=== PATIENT | female | born 1960 | race Caucasian/White ===

== ENCOUNTER 2017-02-07 06:45 | Emergency (ER) | payer OTHER ==
[~2017-02-07] VITALS: Ht 160 cm; Wt 70.8 kg
[2017-02-07 07:33] LABS: EOSINOPHIL (%) 0.2 % (0-5); HEMATOCRIT 42.8 % (36.0-46.0); IMMATURE GRANULOCYTE (%) 0.5 % (0.0-0.7); IMMATURE GRANULOCYTE COUNT 0.1 K/uL; INSTRUMENT ABS NEUTROPHIL CT 10.1 K/uL; LYMPHOCYTE COUNT 1.5 K/uL (1.0-2.8); MCH 34.1 PG (29.0-34.0); MCHC 34.8 G/DL (30.0-36.0); MCV 97.9 FL (83-99); MEAN PLAT.VOLUME 9.1 uM^3 (9.5-12.4); MONOCYTE (%) 6.1 % (3-12); MONOCYTE COUNT 0.8 K/uL (0-0.8); NEUTROPHIL (%) 80.7 % (45-76); NEUTROPHIL COUNT 10.1 K/uL (1.8-6.4); PLATELET COUNT 312 K/uL (156-360); RBC DIS.WIDTH-CV 12.3 % (11.8-14.6); RBC DIS.WIDTH-SD 44.4 % (39-53); RED BLOOD COUNT 4.37 M/uL (3.80-5.20); WHITE BLOOD COUNT 12.6 K/uL (4.1-10.2)
[2017-02-07 07:49] LABS: CHLORIDE 107 mEq/L (99-109); POTASSIUM 3.6 mEq/L (3.7-5.4); SODIUM 146 mEq/L (136-147)
[2017-02-07 07:51] LABS: GLUCOSE 127 mg/dL (70-99)
[2017-02-07 07:52] LABS: ANION GAP 13 MEQ/L (2-14)
[2017-02-07 07:53] LABS: TOTAL BILIRUBIN 0.5 mg/dL (0.0-1.0)
[2017-02-07 07:55] LABS: ALKALINE PHOSPHATASE 98 IU/L (3-129); GFR ESTIMATE (CALCULATED) > 59 mL/min/
[2017-02-07 07:56] LABS: UREA NITROGEN (BUN) 17 mg/dL (9-23)
[2017-02-07 07:57] LABS: TROP-I INTERPRETATION NEGATIVE; TROPONIN-I < 0.01 ng/mL (0.0-0.30)
[2017-02-07 08:03] LABS: D-DIMER ELISA 1.79 mg/L FEU (< 0.57)
[2017-02-07 10:46] LABS: TROP-I INTERPRETATION NEGATIVE; TROPONIN-I < 0.01 ng/mL (0.0-0.30)
[2017-02-07] MEDS ORDERED: PROTONIX40 MG PO ×2 (11:22→22:20)
[2017-02-07 12:13] VITALS: BP 156/99
[2017-02-07] MEDS ORDERED: VALACYCLOVIR1000 MG PO (22:18)
[2017-02-07] MEDS ORDERED: OXYCODONE-APAP1 EACH PO (22:18)
[2017-02-07] MEDS ORDERED: ANTIVERT25 MG PO (22:18)
[2017-02-07] MEDS ORDERED: AMITRIPTYLINE H50 MG PO (22:19)
[2017-02-07] MEDS ORDERED: LOTENSIN10 MG PO (22:19)
[2017-02-07] MEDS ORDERED: ALPRAZOLAM0.5 MG PO (22:19)
[2017-02-07] MEDS ORDERED: IPRATROPIUM BRO15 ML BOTH NARES (22:19)
[2017-02-07] MEDS ORDERED: LEVOTHYROXINE112 MCG PO (22:20)
== END 2017-02-07 12:35 | disposition home or self-care (01) ==
LOC: EME 06:45
PROVIDERS: Emergency Medicine
DX: R07.89 Other chest pain (principal); R10.13 Epigastric pain; I10 Essential (primary) hypertension; E78.5 Hyperlipidemia, unspecified; Z88.6 Allergy status to analgesic agent
CPT/HCPCS: 71010; 71275; 80053; 84484; 85025; 85379; 93005; 99281; 99284; J2270; J2405; J7030

== ENCOUNTER 2017-02-07 19:48 | Observation (INO) | payer OTHER ==
[~2017-02-07] VITALS: Ht 160 cm; Wt 67.7 kg
[~2017-02-07 19:48] MED LIST: PROTONIX40 MG PO
[2017-02-07 20:28] LABS: HEMATOCRIT 44.2 % (36.0-46.0); MCH 34.1 PG (29.0-34.0); MCHC 34.4 G/DL (30.0-36.0); MCV 99.1 FL (83-99); MEAN PLAT.VOLUME 9.1 uM^3 (9.5-12.4); PLATELET COUNT 331 K/uL (156-360); RBC DIS.WIDTH-CV 12.6 % (11.8-14.6); RED BLOOD COUNT 4.46 M/uL (3.80-5.20); WHITE BLOOD COUNT 9.9 K/uL (4.1-10.2)
[2017-02-07 20:43] LABS: CHLORIDE 106 mEq/L (99-109); SODIUM 143 mEq/L (136-147)
[2017-02-07 20:45] LABS: GLUCOSE 117 mg/dL (70-99)
[2017-02-07 20:46] LABS: ANION GAP 12 MEQ/L (2-14)
[2017-02-07 20:48] LABS: GFR ESTIMATE (CALCULATED) > 59 mL/min/
[2017-02-07 20:49] LABS: TROP-I INTERPRETATION NEGATIVE; TROPONIN-I < 0.01 ng/mL (0.0-0.30); UREA NITROGEN (BUN) 17 mg/dL (9-23)
[2017-02-07] MEDS ORDERED: VALACYCLOVIR1000 MG PO (22:18)
[2017-02-07] MEDS ORDERED: ANTIVERT25 MG PO (22:18)
[2017-02-07] MEDS ORDERED: OXYCODONE-APAP1 EACH PO (22:18)
[2017-02-07] MEDS ORDERED: ALPRAZOLAM0.5 MG PO (22:19)
[2017-02-07] MEDS ORDERED: AMITRIPTYLINE H50 MG PO (22:19)
[2017-02-07] MEDS ORDERED: IPRATROPIUM BRO15 ML BOTH NARES (22:19)
[2017-02-07] MEDS ORDERED: LOTENSIN10 MG PO (22:19)
[2017-02-07] MEDS ORDERED: PROTONIX40 MG PO (22:20)
[2017-02-07] MEDS ORDERED: LEVOTHYROXINE112 MCG PO (22:20)
[2017-02-08 02:24] VITALS: BP 145/86
[2017-02-08 02:53] LABS: D-DIMER ELISA > 4.00 mg/L FEU (< 0.57)
[2017-02-08 03:04] LABS: TROP-I INTERPRETATION NEGATIVE; TROPONIN-I < 0.01 ng/mL (0.0-0.30)
[2017-02-08 03:54] VITALS: BP 132/68
[2017-02-08 08:52] VITALS: BP 141/69
[2017-02-08 09:47] LABS: TROP-I INTERPRETATION NEGATIVE; TROPONIN-I < 0.01 ng/mL (0.0-0.30)
[2017-02-08 11:38] VITALS: BP 157/72
[2017-02-08 18:50] VITALS: BP 176/96
[2017-02-09 00:08] VITALS: BP 137/72
[2017-02-09 03:57] VITALS: BP 142/72
[2017-02-09 06:30] LABS: HEMATOCRIT 37.3 % (36.0-46.0); MCH 34.2 PG (29.0-34.0); MCHC 34.6 G/DL (30.0-36.0); MCV 98.9 FL (83-99); MEAN PLAT.VOLUME 9.5 uM^3 (9.5-12.4); PLATELET COUNT 274 K/uL (156-360); RBC DIS.WIDTH-CV 11.9 % (11.8-14.6); RBC DIS.WIDTH-SD 43.7 % (39-53); RED BLOOD COUNT 3.77 M/uL (3.80-5.20)
[2017-02-09 06:36] LABS: WHITE BLOOD COUNT 5.9 K/uL (4.1-10.2)
[2017-02-09 06:41] LABS: ALKALINE PHOSPHATASE 75 IU/L (3-129); ANION GAP 11 MEQ/L (2-14); CHLORIDE 105 MEQ/L (99-109); GFR ESTIMATE (CALCULATED) > 59 mL/min/; GLUCOSE 115 mg/dL (70-99); POTASSIUM 4.2 MEQ/L (3.7-5.4); SAMPLE HEMOLYSIS CHECK 0; SAMPLE ICTERIC CHECK 0; SAMPLE LIPEMIA CHECK 0; SODIUM 140 MEQ/L (136-147); TOTAL BILIRUBIN 0.6 MG/DL (0.0-1.0); UREA NITROGEN (BUN) 11 mg/dL (9-23)
[2017-02-09 07:39] VITALS: BP 143/84
[2017-02-09 11:21] VITALS: BP 129/77
[2017-02-09 11:36] LABS: ADD MIUA? YES; BILIRUBIN NEGATIVE; BLOOD SMALL; COLOR STRAW ((YELLOW)); GLUCOSE (STRIP) NEGATIVE; KETONES 5; LEUKOCYTES NEGATIVE; NITRITE NEGATIVE; PROTEIN (STRIP) NEGATIVE; SPECIFIC GRAVITY 1.003 (1.000-1.030); UROBILINOGEN 0.2 MG/DL (0.2-1.0)
[2017-02-09 11:54] LABS: BACTERIA 1+ /HPF; EPITHELIAL CELLS RARE /HPF; MUCUS TRACE /LPF; RED BLOOD CELLS 0-5 /HPF (0-5); UCUL ADDED? NO; WHITE BLOOD CELLS 0-5 /HPF (0-5)
[2017-02-09] MEDS ORDERED: NITROSTAT0.4 MG SL (14:53)
[2017-02-09] MEDS ORDERED: PEPCID AC20 MG PO (14:53)
[2017-02-09] MEDS ORDERED: ASPIR-LOW81 MG PO (14:53)
[2017-02-09] MEDS ORDERED: LOPRESSOR25 MG PO (14:53)
[2017-02-09] MEDS ORDERED: DELTASONE20 M1 PO (14:53)
[2017-02-09] MEDS ORDERED: BENADRYL25 MG PO (14:53)
== END 2017-02-09 15:40 | disposition home or self-care (01) ==
LOC: EME 19:48 → EDOF 02-08 01:23 → 5WEST 02-08 01:23 → EDOF 02-08 01:23 → 5WEST 02-08 02:13
PROVIDERS: Hospitalist
PROC: 0DB68ZX Excision of Stomach, Via Natural or Artificial Opening Endoscopic, Diagnostic (ICD-10-PCS; principal; 2017-02-08)
DX: K29.70 Gastritis, unspecified, without bleeding (principal); L27.0 Generalized skin eruption due to drugs and medicaments taken internally; K44.9 Diaphragmatic hernia without obstruction or gangrene; T40.2X5A Adverse effect of other opioids, initial encounter; F10.21 Alcohol dependence, in remission; I42.6 Alcoholic cardiomyopathy; F10.24 Alcohol dependence with alcohol-induced mood disorder; E03.9 Hypothyroidism, unspecified; I10 Essential (primary) hypertension; E78.5 Hyperlipidemia, unspecified; F17.200 Nicotine dependence, unspecified, uncomplicated; K21.9 Gastro-esophageal reflux disease without esophagitis
CPT/HCPCS: 71010; 74177; 80048; 80053; 81003; 83690; 84484; 85027; 85379; 88305; 88342 TC; 93005; 93970; 99281; 99285; C9113; G0378; J1100; J1170; J1200; J1650; J2060; J2270; J2405; J2765; J2920; J7030; J7120; S0028

== ENCOUNTER 2017-02-14 15:21 | Emergency (ER) | payer OTHER ==
[~2017-02-14] VITALS: Ht 160 cm; Wt 60.5 kg
[~2017-02-14 15:21] MED LIST changes: +ALPRAZOLAM0.5 MG PO; +AMITRIPTYLINE H50 MG PO; +ANTIVERT25 MG PO; +ASPIR-LOW81 MG PO; +BENADRYL25 MG PO; +DELTASONE20 M1 PO; +IPRATROPIUM BRO15 ML BOTH NARES; +LEVOTHYROXINE112 MCG PO; +LOPRESSOR25 MG PO; +LOTENSIN10 MG PO; +NITROSTAT0.4 MG SL; +OXYCODONE-APAP1 EACH PO; +PEPCID AC20 MG PO; +VALACYCLOVIR1000 MG PO
[2017-02-14 16:33] LABS: HEMATOCRIT 40.4 % (36.0-46.0); MCH 34.3 PG (29.0-34.0); MCHC 34.9 G/DL (30.0-36.0); MCV 98.3 FL (83-99); PLATELET COUNT 328 K/uL (156-360); RBC DIS.WIDTH-CV 12.3 % (11.8-14.6); RBC DIS.WIDTH-SD 44.7 % (39-53); RED BLOOD COUNT 4.11 M/uL (3.80-5.20); WHITE BLOOD COUNT 10.8 K/uL (4.1-10.2)
[2017-02-14 16:45] LABS: CHLORIDE 108 mEq/L (99-109); SODIUM 140 mEq/L (136-147)
[2017-02-14 16:47] LABS: GLUCOSE 175 mg/dL (70-99)
[2017-02-14 16:48] LABS: ANION GAP 11 MEQ/L (2-14)
[2017-02-14 16:51] LABS: GFR ESTIMATE (CALCULATED) > 59 mL/min/
[2017-02-14 16:54] LABS: UREA NITROGEN (BUN) 24 mg/dL (9-23)
[2017-02-14 17:00] VITALS: BP 137/103
[2017-02-14 17:11] LABS: TROP-I INTERPRETATION NEGATIVE; TROPONIN-I 0.01 ng/mL (0.0-0.30)
[2017-02-14 18:38] LABS: TOTAL BILIRUBIN 0.3 mg/dL (0.0-1.0)
[2017-02-14 18:39] LABS: ALKALINE PHOSPHATASE 90 IU/L (3-129)
[2017-02-14 18:42] LABS: DIRECT BILIRUBIN 0.1 mg/dL (0.0-0.3)
[2017-02-14 18:43] LABS: LIPASE 73 U/L (1.0-51.0)
[2017-02-14 19:16] LABS: ADD MIUA? YES; BILIRUBIN NEGATIVE; BLOOD NEGATIVE; COLOR YELLOW ((YELLOW)); GLUCOSE (STRIP) NEGATIVE; KETONES NEGATIVE; LEUKOCYTES NEGATIVE; NITRITE POSITIVE; PROTEIN (STRIP) NEGATIVE; SPECIFIC GRAVITY 1.013 (1.000-1.030); UROBILINOGEN 0.2 MG/DL (0.2-1.0)
[2017-02-14 19:24] LABS: BACTERIA RARE /HPF; EPITHELIAL CELLS RARE /HPF; MUCUS TRACE /LPF; RED BLOOD CELLS 0-5 /HPF (0-5); UCUL ADDED? NO; WHITE BLOOD CELLS 0-5 /HPF (0-5)
[2017-02-14] MEDS ORDERED: KEFLEX500 MG PO (20:11)
[2017-02-14 20:12] LABS: TROP-I INTERPRETATION NEGATIVE; TROPONIN-I < 0.01 ng/mL (0.0-0.30)
[2017-02-14 21:14] LABS: PROTHROMBIN TIME 10.4 (9.2-11.2); PTT 24.6 (25-32)
[2017-02-15 07:44] LABS: AMPHETAMINE NEGATIVE (500 ng/mL); BARBITURATES NEGATIVE (200 ng/mL); BENZODIAZEPINES PRESUMPTIVE POSITIVE (150 ng/mL); COCAINE NEGATIVE (150 ng/mL); INTERNAL CONTROLS VALID? YES; METHADONE NEGATIVE (200 ng/mL); METHAMPHETAMINE NEGATIVE (500 ng/mL); OPIATES (MORPHINE) NEGATIVE (100 ng/mL); OXYCODONE PRESUMPTIVE POSITIVE (100 ng/mL); PHENCYCLIDINE NEGATIVE (25 ng/mL); PROPOXYPHENE NEGATIVE (300 ng/mL); THC CANNABINOIDS NEGATIVE (50 ng/mL); TRICYCLIC ANTIDEPRESSANTS NEGATIVE (300 ng/mL)
[2017-02-15 07:45] LABS: ADD MEDTOX COMMENT Y
[2017-02-15 08:15] LABS: BENZODIAZEPINES QUANT VALUE 0 NG/ML; BENZODIAZEPINES, URINE SCREEN Negative (200 ng/mL)
== END 2017-02-14 21:41 | disposition left against medical advice (07) ==
LOC: EME 15:21
PROVIDERS: Physician Assistant Medical
DX: R53.1 Weakness (principal); R10.9 Unspecified abdominal pain; R07.9 Chest pain, unspecified; F17.200 Nicotine dependence, unspecified, uncomplicated; I10 Essential (primary) hypertension; K21.9 Gastro-esophageal reflux disease without esophagitis; Z88.6 Allergy status to analgesic agent
CPT/HCPCS: 71020; 80048; 80076; 81003; 83605; 83690; 84443; 84484; 84999; 85027; 85379; 85610; 85730; 87040; 93005; 99281; 99284; G0480; J2060; J7030

== ENCOUNTER → 2017-07-10 | Outpatient (CLI) | payer OTHER ==
[~2017-07-10] VITALS: Ht 160 cm; Wt 70.4 kg
[~2017-07-10] MED LIST changes: +ELAVIL25 MG PO; +KEFLEX500 MG PO; +OMEPRAZOLE40 M1 PO; +PERCOCET 5/31 TABLET PO; +SYNTHROID112 MCG PO; +VALTREX1000 MG PO; +XANAX0.5 MG PO; +ZYRTEC10 M2 PO
== END | disposition home or self-care (01) ==
LOC: AMB 13:46
DX: Z12.11 Encounter for screening for malignant neoplasm of colon (principal); D12.2 Benign neoplasm of ascending colon; K44.9 Diaphragmatic hernia without obstruction or gangrene; K22.4 Dyskinesia of esophagus; K29.70 Gastritis, unspecified, without bleeding; R13.10 Dysphagia, unspecified; K63.5 Polyp of colon; K57.30 Diverticulosis of large intestine without perforation or abscess without bleeding; K64.8 Other hemorrhoids; Z86.010 Personal history of colon polyps; R10.12 Left upper quadrant pain; I42.9 Cardiomyopathy, unspecified; D81.9 Combined immunodeficiency, unspecified; E07.9 Disorder of thyroid, unspecified; Z90.710 Acquired absence of both cervix and uterus; Z79.52 Long term (current) use of systemic steroids; Z87.891 Personal history of nicotine dependence
CPT/HCPCS: 88305; 88342 TC; J2250; J2930; J3010; J7120

== ENCOUNTER 2018-04-16 20:34 | Emergency (ER) | payer OTHER ==
[~2018-04-16] VITALS: Ht 160 cm; Wt 58.2 kg
[2018-04-16 20:51] VITALS: BP 140/97
== END 2018-04-16 21:31 | disposition left against medical advice (07) ==
LOC: EME 20:34
DX: R51 Headache (principal); Z53.21 Procedure and treatment not carried out due to patient leaving prior to being seen by health care provider